=== PATIENT | male | born 1995 | race Caucasian/White ===

== ENCOUNTER 2019-11-14 10:31 | Day surgery (SDC) | payer OTHER, SELFPAY ==
[2019-11-03 07:53] VITALS: BMI 24.7
[2019-11-14] VITALS (9 sets, daily range): BP systolic 101–136; BP diastolic 62–103; PULSE 54–76; RESP 11–16; TEMP 36.6–37.1; O2SAT 97–99; BMI 24.7
[2019-11-14] MEDS: LACTATED RINGERS 1,000 ML 42 ML IV (10:46)
--- NOTE | 2019-11-14 11:17 | PM.PREOP ---
Pre-operative Note Interval Note History & Physical reviewed/Exam performed by Physician: Yes Changes to H&P: No H&P completed within 30 days and has changed as indicated here:: See note from 10/18/2019
[2019-11-14] MEDS: CEFAZOLIN 2 GM/100 ML FROZ.PIGGY IV (11:43)
--- NOTE | 2019-11-14 12:02 | SUR.OPER ---
Supine on padded OR bed, head on pillow, arms secured on padded arm boards at <90 degrees abduction, legs uncrossed, safety belt at thigh, tape over blanket over lower legs.
[2019-11-14] MEDS: BUPIVACAINE 0.5% (PF) VIAL 30 ML INJ (12:07)
--- NOTE | 2019-11-14 12:29 | PM.OP.1 ---
Operative Date/Time/Diagnoses Date of procedure: 11/14/19 Time of procedure: 12:29 Pre-op diagnosis: Hernia at the umbilicus. Reducible. Post-op diagnosis: same (Probable incisional hernia from a laparoscopic appendectomy. Tiny defect.) Procedure & Clinicians Procedure: Repair with suture Same procedure as scheduled: Yes Indications: Patient with a hernia at the umbilicus Surgeon: Elder Ferro Click Yes if Unassisted: Yes Anesthesia Type: General Operative Notes Findings: Very small defect with no contents. Closure Type: primary Specimen(s): none sent Prosthetic devices, grafts, tissues, transplants, or devices: None Estimated Blood Loss (mL): 5 Blood products transfused: none Procedure in detail: The patient was placed supine on the operating table and underwent general LMA anesthesia. He was prepped and draped in the usual fashion. Though he denied a prior operation there was clearly had a small scar immediately beneath the umbilicus. It local anesthetic was infiltrated in a field block fashion. Incision was made through the old scar and carried down to the level of the fascia. I lifted the umbilicus off of the underlying tissues and identified a very small defect. I carefully sought any additional openings could not see probe or feel 1. Therefore I cleaned the edges of this very small defect that was probably 3 mm across. A simple repair with 0 Ethibond was performed. The defect was wait too small to fit anything under the fascia without extending the fascial defect. The umbilicus was tacked down to the fascia with interrupted 3 0 Vicryl. The subcu was closed with interrupted 3 0 Vicryl the skin was closed running 4 0 Vicryl subcuticular stitch and Steri-Strips. Dressing was applied. The patient was awakened extubated and taken recovery area in good condition. Complications: none Post-operative Condition: stable Disposition: PACU Plan for aftercare: Follow-up the office
--- NOTE | 2019-11-14 14:30 | SUR.PHASEII ---
Assumed care from RISA Ordoñez. Friend filled home meds. D/c instructions discussed with both, both voiced an understanding. Pt dressed when ready and left when ready and in stable condition.
== END 2019-11-14 14:00 | disposition home or self-care (01) ==
PROVIDERS: PCP General Practice; Visit Provider Specialist
PROC: (CPT 49585; principal; 2019-11-14 11:45)
DX: K42.9 Umbilical hernia without obstruction or gangrene (principal)
CPT/HCPCS: 49585; J0690; J2250; J2704; J3010